=== PATIENT | male | born 1985 | race Caucasian/White ===

== ENCOUNTER 2021-10-06 11:36 | Emergency (ER) | payer MEDICAID ==
[~2021-10-06] VITALS: Ht 177.8 cm; Wt 59.0 kg
[2021-10-06] MEDS ORDERED: IBUPROFEN 600MG TABLET PO ONE (12:00)
[2021-10-06] MEDS ORDERED: BACITRACIN ZINC OINT UDPKT TOP ONE (12:00)
[2021-10-06] MEDS ORDERED: AMOXICILLIN/POTASSIUM CLAVULANATE 875/125MG TAB PO ONE (12:00)
[2021-10-06] MEDS ORDERED: TETANUS, DIPHTHERIA, PERTUSSIS VAC/PF 0.5ML (>10YR OLD) IM ONE (12:00)
[2021-10-06] MEDS ORDERED: LIDOCAINE HCL/PF 1% 10 MG/ML 5ML VIAL INFIL ONE (14:00)
[2021-10-06] MEDS ORDERED: AMOX-424 MT (14:43)
[2021-10-06] MEDS ORDERED: TOPUD MT (14:43)
[2021-10-06] MEDS ORDERED: NAPR-1176 MT (14:43)
[2021-10-06 15:30] VITALS: BP 116/71
== END 2021-10-06 15:31 | disposition home or self-care (01) ==
LOC: ER 11:36
DX: S61.211A Laceration without foreign body of left index finger without damage to nail, initial encounter (principal); W54.0XXA Bitten by dog, initial encounter; Y93.89 Activity, other specified; Y92.89 Other specified places as the place of occurrence of the external cause; Y99.8 Other external cause status
CPT/HCPCS: 12001; 73130; 90471; 90715; 99284; J3490; Z7610

== ENCOUNTER 2021-10-08 10:16 | Emergency (ER) | payer MEDICAID ==
[~2021-10-08] VITALS: Ht 170.2 cm; Wt 77.0 kg
[~2021-10-08 10:16] MED LIST: AMOX-424 MT; NAPR-1176 MT; TOPUD MT
[2021-10-08 10:44] VITALS: BP 136/67
== END 2021-10-08 11:50 | disposition home or self-care (01) ==
LOC: ER 10:16
DX: Z48.00 Encounter for change or removal of nonsurgical wound dressing (principal)
CPT/HCPCS: 99281

== ENCOUNTER 2021-10-16 07:13 | Emergency (ER) | payer MEDICAID ==
[~2021-10-16] VITALS: Ht 177.8 cm; Wt 61.4 kg
[2021-10-16 07:23] VITALS: BP 116/64
== END 2021-10-16 08:28 | disposition home or self-care (01) ==
LOC: ER 07:13
DX: Z48.02 Encounter for removal of sutures (principal)
CPT/HCPCS: 99281; Z7610